=== PATIENT | male | born 1975 | race Caucasian/White ===

== ENCOUNTER 2021-05-30 19:06 | Emergency (ER) | payer BC ==
[2021-05-30] MEDS ORDERED: methylPREDNISolone Sodium Succinate 125 MG/2 ML SDV ONE (19:20)
[2021-05-30] MEDS ORDERED: diphenhydrAMINE 50 MG/ML SDV ONE (19:20)
[2021-05-30] MEDS ORDERED: EPINEPHrine 1 MG/ML SDV ONE (19:22)
[2021-05-30] MEDS ORDERED: methylPREDNISolone Sodium Succinate 125 MG/2 ML SDV IVPUSH ONE (19:29)
[2021-05-30] MEDS ORDERED: EPINEPHrine 1 MG/1 ML Amp IM ONE (19:29)
[2021-05-30] MEDS ORDERED: diphenhydrAMINE 50 MG/ML SDV IVPUSH ONE (19:29)
[2021-05-30] MEDS ORDERED: Albuterol 0.5% 5 MG/ML Neb Soln 20 ML Bottle NEB ONE (19:35)
[2021-05-30] MEDS ORDERED: Albuterol 0.5% 5 MG/ML Neb Soln 20 ML Bottle ONE (19:37)
== END 2021-05-30 23:17 | disposition home or self-care (01) ==
LOC: MW.ED 19:06
DX: T78.2XXA Anaphylactic shock, unspecified, initial encounter (principal)
CPT/HCPCS: 93005; 96372; 96374; 96375; 99283; J0171; J1200; J2930